=== PATIENT | female | born 1980 | race Caucasian/White ===

== ENCOUNTER 2023-04-19 21:09 | Inpatient (IN) | payer MEDICARE, SELFPAY ==
[2023-04-19] VITALS (17 sets, daily range): BP systolic 92–129; BP diastolic 59–99; BMI 20.6
[2023-04-19] MEDS: NSS 1000 IV ×3 (18:18→22:51)
[2023-04-19 18:39] LABS: % Basophils 0.6 % (0-2); % Immature Granulocytes 0.3 % (0-0.5); % Monocytes 4.1 % (1.7-9.3); Absolute Basophils 0.1 10^3/uL (0-0.2); Absolute Lymphocytes 1.1 10^3/uL (1.2-3.4); Absolute Monocytes 0.4 10^3/uL (0.1-0.6); Absolute Neutrophils 7.9 10^3/uL (1.4-6.5); Hematocrit 30.7 % (37.0-47.0); Hemoglobin 11.4 g/dL (12.0-16.0); Mean Corp Hgb Conc. 37.1 g/dL (33.0-37.0); Mean Corpuscular Hgb 32.3 pg (27.0-31.0); Mean Platelet Volume 9.2 fL (7.4-10.4); Nucleated Red Blood Cells % 0 %; Platelet Count 264 10^3/uL (130-400); Red Blood Cell Count 3.53 10^6/uL (4.20-5.40); Red Cell Dist. Width 13.2 % (11.5-14.5); White Blood Cell Count 9.5 10^3/uL (4.8-10.8)
[2023-04-19 18:41] LABS: HCG, Serum Qualitative Screen Negative
[2023-04-19 18:46] LABS: ALT (SGPT) 17 U/L (0-35); AST (SGOT) 23 U/L (14-36); Acetaminophen < 10 ug/ml (10-30); Albumin 3.9 g/dl (3.5-5.0); Alcohol None Detected; Alkaline Phosphatase 62 U/L (38-126); Blood Urea Nitrogen 16 mg/dl (7-17); Calcium 8.5 mg/dl (8.4-10.2); Carbon Dioxide 19 mmol/L (22-30); Chloride 106 mmol/L (98-107); Estimated Creatinine Clearance 98 ml/min; Glucose 139 mg/dl (70-99); Potassium 3.4 mmol/L (3.5-5.1); Salicylate < 1.0 mg/dl (2.0-20.0); Sodium 136 mmol/L (135-145); Total Bilirubin 0.7 mg/dl (0.2-1.3); Total Protein 6.4 g/dl (6.3-8.2); eGFR > 60.00
--- NOTE | 2023-04-19 19:27 | ED.GENMED ---
History of Present Illness
General
Chief Complaint: Overdose Intentional
Source: patient and ambulance crew
Exam Limitations: clinical condition
Travel History
Have you had any contact with someone who has COVID-19?: Unable to Answer
Do you have any symptoms of coronavirus? Fever > 100 degrees, chills, cough, shortness of breath, sore throat, loss of taste or smell, muscle aches, or headache?: Unable to Answer
History of Present Illness
History of Present Illness:
42-year-old female presents after she overdosed at home. She took about 30, 300 mg Seroquel tablets and an overdose attempt. She also tried to cut her neck. The patient's history is somewhat limited due to her apparent intoxication from her
overdose. She denies taking any other medications.
Past History
Past History
ED Past Medical History: Psychiatric
Social History
Tobacco: Non-smoker
Personal: Single
Employment: Employed
Phy Exam
Physical Exam
Physical Exam:
CONSTITUTIONAL Patient somnolent. Appears intoxicated. Vital signs reviewed.
HEAD atraumatic, normocephalic.
EYES eyelids normal to inspection, Pupils equally round and reactive to light, Extraocular muscles intact, Conjunctiva normal, Sclera normal.
NECK normal range of motion, Trachea midline, no jugular venous distention. Superficial abrasions noted to the neck on the left but comes across midline. It is clearly superficial does not break the fascial plane
RESPIRATORY CHEST No respiratory distress noted, Chest expansion equal, Bilateral breath sounds clear.
CARDIOVASCULAR and tachycardic
ABDOMEN abdomen nontender, Bowel sounds normal. No distention.
BACK normal inspection, no obvious deformities
UPPER EXTREMITY range of motion normal, Motor strength normal, no cyanosis, no edema.
LOWER EXTREMITY range of motion normal, Motor strength normal, no cyanosis, no edema.
NEURO speech somewhat slurred, moves all extremities equally, cranial nerves intact, confused.
SKIN skin warm, dry, and normal in color.
Course
Orders/Labs/Results
Orders:
Orders
04/19/23 18:07
Electrocardiogram (*1) Urgent
Reason for Study: QTc Monitoring
EKG- Treatment ONCE
04/19/23 18:09
Cardiac Monitoring- Treatment ONCE
Urinalysis Reflex To Culture Urgent
Urine Drug Abuse Screen Urgent
04/19/23 18:10
0.9% Sodium Chloride 1000 ml [Nss] 1,000 ml IV BOLUS
Test Result ONCE
04/19/23 18:16
Acetaminophen Urgent
Alcohol Urgent
Complete Blood Count/With Diff Urgent
Comprehensive Metabolic Panel Urgent
HCG, Serum Qualitative Screen Urgent
Salicylate Urgent
04/19/23 19:30
0.9% Sodium Chloride 1000 ml [Nss] 1,000 ml IV BOLUS
Abnormal Lab Results
04/19/23
18:16
RBC 3.53 L 10^6/uL
(4.20-5.40)
Hgb 11.4 L g/dL
(12.0-16.0)
Hct 30.7 L %
(37.0-47.0)
MCH 32.3 H pg
(27.0-31.0)
MCHC 37.1 H g/dL
(33.0-37.0)
Absolute Neuts (auto) 7.9 H 10^3/uL
(1.4-6.5)
Absolute Lymphs (auto) 1.1 L 10^3/uL
(1.2-3.4)
Neutrophils % 83.0 H %
(42.2-75.2)
Lymphocytes % 12.0 L %
(20.5-51.1)
Potassium 3.4 L mmol/L
(3.5-5.1)
Carbon Dioxide 19 L mmol/L
(22-30)
Glucose 139 H mg/dl
(70-99)
Salicylates < 1.0 L mg/dl
(2.0-20.0)
Acetaminophen < 10 L ug/ml
(10-30)
04/19/23 18:16
04/19/23 18:16
Vital Signs
Initial and Last Documented VS:
Initial Vital Signs
Pulse BP Pulse Ox
118 92/60 98
04/19/23 18:00 04/19/23 18:00 04/19/23 18:00
Last Documented Vital Signs
Temp Pulse Resp BP Pulse Ox
98.3 F 121 17 119/63 97
04/19/23 18:49 04/19/23 19:15 04/19/23 19:15 04/19/23 19:15 04/19/23 19:15
MDM/Problems Addressed
MDM/Problems Addressed:
Suicide attempt, self cutting, Seroquel overdose, major depression
*Pulse Oximetry
Patient hypoxic: no
*EKG
Interpreted by ED Provider?: Yes
Interpretation: abnormal
Rate: tachycardiac
Rhythm: sinus
[place]: normal axis
Ischemia: non-specific ST changes
*Senior Data Quality Analyst Interpretation
Rate: tachycardiac
Interpretation: abnormal
Rhythm: sinus
*Critical Care Note
Total Time (30-74mins, 75-104mins- exclusive of procedures): 45 minutes
Data Reviewed
Source: patient and ambulance crew
Prescriptions/Medications Considered But Not Given:
Considered IV magnesium but toxicology from [facility] recommends only if QTc goes above 500
Patient Management
Discussion with other providers: Law Firm Partner (case d/w DR Valdovinos from tox)
Escalation/DeEscalation of care consider admission/obs:
Patient awake but somnolent. Suspect related to Seroquel overdose. No clinical concern for her coming to her neck as it is very superficial. Toxicology recommends close monitoring in the hospital as inpatient as this can take some time to
washout. He also wants monitoring of her QTc. If QTc goes greater than 500 then consider 2 g of IV magnesium. Admit
Update Note
Update Note:
302 was filed by police, upheld by me
ED Attending Note
-
Portions of this chart may have been created with voice recognition software.� Occasional wrong word or��sound alike� substitutions may have occurred due to the inherent limitations of voice recognition software.
Discharge Plan
Departure
Patient Disposition: Admit
Date of Disposition: 04/19/23
Time of Disposition: 19:54
Admit to: IMU
Presentation/result/management discussed w/ accepting MD/DO: Hospitalist
Discharge Problem:
seroquel overdose, Suicide attempt, Deliberate self-cutting
Prescriptions:
No Action
lamotrigine 200 mg tablet
200 mg PO HS
quetiapine 300 mg tablet
300 mg PO HS
olanzapine 15 mg tablet
15 mg PO HS
drospirenone-ethinyl estradiol 3-0.03 mg tablet
1 tab PO DAILY
alprazolam 3 mg tablet extended release 24 hr
3 mg PO HS
Patient Comments:
04/19/2023: last filled 04/03/23, 30 tabs for 30 days from [id number]
alprazolam 1 mg tablet extended release 24 hr
1 mg PO DAILY
Patient Comments:
04/19/2023: last filled 03/31/23, 30 tabs for 30 days from [id number]
Interventions
Interventions:
*Risk Screen - Suicide Last Done: 04/19/23 18:26
--- NOTE | 2023-04-19 19:55 | PHANOTE ---
Med Rec Note:
Pt unable to be interview at time of med rec. Med list compiled from Dr Hernandez, Home med list and EMS report.
--- NOTE | 2023-04-19 20:26 | HPS.HSE ---
Family Physician
-
Family Physician: * NONE
Chief Complaint
-
overdose
History of Present Illness
42-year-old female past medical history of presenting for overdose. She took 30 tablets of 300 mg Seroquel as an overdose attempt. She also tried to cut her neck. No further history can be obtained as patient not making sense.
Medical History
Past Medical History
Past Medical History: Reports Psychiatric
Past Surgical History: Reports None
Social History
Tobacco: Non-smoker
Alcohol: None
Drug: None
Family History
Family History: Not pertinent
Allergies / Home Medications
Allergies reflects when Allergies were last updated in [facility].
Home Medications with original date entered in [facility]
Allergy/Medication List:
Allergies
Allergy/AdvReac Type Severity Reaction Status Date / Time
Penicillins Allergy Hives Verified 04/26/11 16:13
Sulfa (Sulfonamide Allergy Hives Verified 04/26/11 16:13
Antibiotics)
Home Medications
alprazolam 1 mg tablet,extended release 24 hr 1 mg PO DAILY 04/19/23
alprazolam 3 mg tablet,extended release 24 hr 3 mg PO HS 04/19/23
drospirenone 3 mg-ethinyl estradiol 0.03 mg tablet 1 tab PO DAILY 04/19/23
lamotrigine 200 mg tablet 200 mg PO HS 04/19/23
olanzapine 15 mg tablet 15 mg PO HS 04/19/23
quetiapine 300 mg tablet 300 mg PO HS 04/19/23
Review of Systems
-
History Source: Patient
A 12 point ROS was completed and negative except as noted: Yes
Constitutional: Reports No Symptoms
EENT: Reports No Symptoms
Respiratory: Reports No Symptoms
Cardiac: Reports No Symptoms
Abdomen/GI: Reports No Symptoms
: Reports No Symptoms
Musculoskeletal: Reports No Symptoms
Skin: Reports No Symptoms
Neurological: Reports No Symptoms
Endocrine: Reports No Symptoms
Hematologic/Lymphatic: Reports No Symptoms
Psych: Reports No Symptoms
Physical Exam
Vital Signs
Vital Signs
Temp Pulse Resp BP Pulse Ox
98.3 F 112 13 128/65 97
04/19/23 18:49 04/19/23 20:00 04/19/23 20:00 04/19/23 20:00 04/19/23 19:45
Physical Exam
General: Well Developed, Well Nourished and No Apparent Distress
HEENT: NormoCephalic, Moist mucous membranes and Atraumatic
Respiratory: Clear
Cardiac: S1/S2 and Regular Rhythm; No Murmur or Rub
GI: Soft, Non Tender, Non Distended and Normal Bowel Sounds; No Organomegaly
Rectal: Deferred by Provider
Musculoskeletal: No Clubbing, No Cyanosis and No Edema
Skin: No Rash
Neuro: Nonfocal/grossly intact
Laboratory Results
-
04/19/23 18:16
04/19/23 18:16
Laboratory Results
Total Bilirubin 0.7 mg/dl (0.2-1.3) 04/19/23 18:16
AST 23 U/L (14-36) 04/19/23 18:16
ALT 17 U/L (0-35) 04/19/23 18:16
Alkaline Phosphatase 62 U/L (38-126) 04/19/23 18:16
Data Reviewed
-
Lab Data: Labs Reviewed by me
Old Records: Reviewed
Impression/Plan
-
IMPRESSION:
PLAN:
# Seroquel overdose
-Patient awake and alert and AAOx3 but not making sense
-302 signed
-EKG shows sinus tachycardia, QRS of 86, QTc of 483
-Salicylate, Tylenol negative
-Alcohol level negative
-UDS pending
-Telemetry monitoring
-EKG q6 hours
-IV fluids
-One-to-one sitter
-Toxicology recommended repeat EKG in 2 hours and IV magnesium if QTc greater than 500
-Psychiatry consulted
# Neck injury
-No bleeding or wound
Psychiatric history
-Hold all psychiatric medications until mental status improves/evaluated by psychiatry
Hypokalemia
-Replete potassium
Chronic anemia
Full code
DVT prophylaxis heparin
Regular diet
[2023-04-19] MEDS: KCL 270 MEQ IV (21:11)
[2023-04-20] VITALS (41 sets, daily range): BP systolic 97–144; BP diastolic 46–121
[2023-04-20 00:24] LABS: Glucose - Point of Care 125 mg/dl (70-99)
--- NOTE | 2023-04-20 01:37 | W.PN.UPDATE ---
Update Note
Progress Note Update
-Patient had seizure that witness by the nursing staff and described as 12 seconds of tonic clonic seizure-type activity, no warning signs, spontaneous in nature and onset. On assessment, patient is awake, no seizure activities witness during
assessment time. She is confused, with non sense sentences, not following direction which is her baseline since admission time. Non clear if the patient has medical history of seizure or could be related to the overdose meds. Can not obtain medical
history from the patient at this time.
-Will add Ativan 1mg q6hrs PRN for seizure and neurology consult.
[2023-04-20 03:22] LABS: Blood Urea Nitrogen 10 mg/dl (7-17); Calcium 7.6 mg/dl (8.4-10.2); Carbon Dioxide 19 mmol/L (22-30); Chloride 113 mmol/L (98-107); Estimated Creatinine Clearance 114 ml/min; Glucose 103 mg/dl (70-99); Potassium 3.6 mmol/L (3.5-5.1); Sodium 137 mmol/L (135-145); eGFR > 60.00
[2023-04-20] MEDS: ATIVAN 1 MG IV ×3 (03:28→17:16)
[2023-04-20 04:22] LABS: % Basophils 0.4 % (0-2); % Eosinophils 0.1 % (0-6); % Immature Granulocytes 0.4 % (0-0.5); % Monocytes 4.7 % (1.7-9.3); % Neutrophils 72.4 % (42.2-75.2); Absolute Lymphocytes 2.4 10^3/uL (1.2-3.4); Absolute Monocytes 0.5 10^3/uL (0.1-0.6); Absolute Neutrophils 7.8 10^3/uL (1.4-6.5); Hematocrit 30.2 % (37.0-47.0); Hemoglobin 10.2 g/dL (12.0-16.0); Mean Corp Hgb Conc. 33.8 g/dL (33.0-37.0); Mean Corpuscular Hgb 32.3 pg (27.0-31.0); Mean Corpuscular Volume 95.6 fL (81.0-99.0); Mean Platelet Volume 9.1 fL (7.4-10.4); Nucleated Red Blood Cells % 0 %; Platelet Count 268 10^3/uL (130-400); Red Blood Cell Count 3.16 10^6/uL (4.20-5.40); Red Cell Dist. Width 13.3 % (11.5-14.5); White Blood Cell Count 10.8 10^3/uL (4.8-10.8)
[2023-04-20 04:29] LABS: Amphetamines Negative (Negative); Barbiturates Negative (Negative); Benzodiazepines Positive (Negative); Buprenorphine Negative (Negative); Cocaine Negative (Negative); Marijuana Negative (Negative); Methadone Negative (Negative); Methamphetamines Negative (Negative); Opiates Negative (Negative); Phencyclidine Negative (Negative); Tricyclic Antidepressants Positive (Negative)
[2023-04-20 04:37] LABS: Fentanyl, Urine Negative (Negative)
[2023-04-20 04:57] LABS: Urine Albumin Trace (Neg - Trace); Urine Bilirubin Negative (Negative); Urine Character Clear (Clear); Urine Color Yellow; Urine Glucose Negative (Negative); Urine Ketone 3+ (Negative); Urine Leukocyte Negative (Negative); Urine Nitrite Negative (Negative); Urine Occult Blood Negative (Negative); Urine Specific Gravity 1.025 (<1.030); Urine Urobilinogen Negative (Neg - 1+)
[2023-04-20] MEDS: HEPARIN 5000 UNITS SC ×2 (08:08→20:06)
[2023-04-20] MEDS: NSS 1000 IV (08:10)
--- NOTE | 2023-04-20 08:35 | CON.NEURO4 ---
Addendum entered and electronically signed by Zion Ochoa MD 04/20/23 12:20:
Studies reviewed.
I have personally examined the patient. I reviewed and agree with the CASING SPLITTER's Note.
My addenda:
Awake, not alert, interactive. No acute distress.
Speech dysarthric.
Unable to follow 2-step requests. No tremor.
Extra-ocular movements grossly intact.
Facial movements full and symmetric. Hearing intact to normal conversational volume.
Normal UE movements bilaterally.
Neck: full ROM.
Chest: no dyspnea
Heart: no JVD
Ext: (-) Clubbing, (-) Cyanosis, (-) Edema
IMPRESSIONS/RECOMMENDATIONS:
Abrupt onset of change in mental status
Most likely secondary to medication overdose with quetiapine
There is no evidence currently to match serotonin syndrome at this time
No indication at this time that the patient would benefit from antiseizure medication
Supportive care alone
Provide lorazepam if seizure greater than 10 minutes in duration
No indication at this time for EEG
Consider additional testing including neuroimaging if patient does not have steady improvement in the next 24 hours
Will continue to follow as needed.
Original Note:
Consultation - Neurology 4
-
CONSULTING PHYSICIAN: Zion Ochoa MD
REFERRING PHYSICIAN: Hospitalists/LINDA Lundberg
DICTATED BY: LINDA Maya
DATE/TIME OF REQUEST: 04/20/23
DATE/TIME OF CONSULTATION: 04/20/23
Reason for Consultation: Seizure
History of Present Illness:
This is a 42-year-old female who has presented to the hospital on 04/19/23 s/p overdosing on about 30, 300mg Seroquel tablets and superficially cutting her neck. ER VS: 98.3 F, HR 118, BP 92/60, RR 21, 98% RA. UDS +tricyclics and benzodiazepines,
alcohol level negative. Patient was witnessed by staff to have 12 seconds of generalized seizure activity with whole-body shaking early this morning, prompting Neurology consultation. Currently, patient is awake with eyes open and is moving
spontaneously. She has a generalized body shakiness. Speech is nonsensical/garbled and she is unable to contribute to this history. Unknown if patient has any history of seizures.
Past Medical History: Bipolar affective disorder, asthma, recurrent UTI
Surgical History: None.
Family History: Reviewed and noncontributory.
Social History: None smoker, no alcohol or illicit drug use.
Allergies: Penicillins, sulfa.
Home Medications: See below.
Review of Symptoms:
Per the HPI. I am unable to obtain a complete review of systems�because of patient's inability to provide history.
Physical Exam:
The patient is afebrile, abdomen is nondistended, breathing is unlabored, skin is warm and dry, no edema. Lacerations on left anterior neck.
Neurologic Examination:
The patient is awake with eyes open, tracks around the room. Speech is nonsensical/garbled. She is not following any commands. On cranial nerve assessment, pupils are 4 mm bilateral, round and sluggish to light and accommodation. BARRON visual mondragon
or EOMs. No gaze deviation and eyes track around the room. There is no facial asymmetry. BARRON hearing. Cannot assess entire tongue but there does not appear to be a tongue laceration. Moving all extremities spontaneously, uppers antigravity, lowers
2/5. Body movements are generally shaky. Deep tendon reflexes are 1+ bilateral upper and lower extremities and Babinski is absent bilaterally. No clonus. BARRON sensation and coordination.
Lab Results: See below.
Neuro Imaging: None.
Differentials for the patient's presentation include:
1. Generalized seizure in the setting of Seroquel overdose, without status epilepticus, well-controlled.
Patient has the following risk factors for their symptoms: Seroquel overdose, benzodiazepine usage.
Recommendations:
-Do not see a role for further neurological imaging at this time. If there are s/s of more seizure activity, will obtain an EEG at that point.
-Lorazepam 1mg PRN seizure activity.
-Seizure precautions.
-Psychiatry following for Seroquel overdose.
Discussed patient care with: Dr. Ochoa, the patient
Vital Signs and Labs
-
Vital Signs and Labs:
Vital Signs
Temp Pulse Resp BP Pulse Ox
98.9 F 104 17 130/74 97
04/20/23 07:00 04/20/23 06:30 04/20/23 06:30 04/20/23 06:30 04/20/23 06:00
Lab Results
04/20/23 06:00
04/20/23 06:00
Sodium Cancelled 04/20/23 06:00
Potassium Cancelled 04/20/23 06:00
BUN Cancelled 04/20/23 06:00
Glucose Cancelled 04/20/23 06:00
Calcium Cancelled 04/20/23 06:00
Ur Buprenorphine Negative (Negative) 04/20/23 03:58
Medications
-
Active Medications
Generic Name Dose Route Start Last Admin
Trade Name Freq PRN Reason Stop Dose Admin
Heparin Sodium 5,000 units 04/20/23 08:00 04/20/23 08:08
Heparin 5,000 Units/Ml 1 Ml Vial SC 05/18/23 07:59 5,000 units
Q12 JENNIFER Administration
Sodium Chloride 1,000 mls @ 100 mls/hr 04/19/23 22:38 04/20/23 08:10
Nss IV 1,000 mls
.Q10H JENNIFER Administration
Lorazepam 1 mg 04/20/23 01:25 04/20/23 03:28
Lorazepam 2 Mg/Ml Vial IV 05/18/23 01:24 1 mg
Q6HPRN PRN Administration
Seizure
Sodium Chloride 0 flush 04/19/23 23:00
Sodium Chloride 0.9% (Flush) Syringe IV 05/17/23 22:59
PER PROTOCOL JENNIFER
Home Medications
Medication Instructions Recorded
alprazolam 1 mg tablet,extended 1 mg PO DAILY 04/19/23
release 24 hr
alprazolam 3 mg tablet,extended 3 mg PO HS 04/19/23
release 24 hr
drospirenone 3 mg-ethinyl 1 tab PO DAILY 04/19/23
estradiol 0.03 mg tablet
lamotrigine 200 mg tablet 200 mg PO HS 04/19/23
olanzapine 15 mg tablet 15 mg PO HS 04/19/23
quetiapine 300 mg tablet 300 mg PO HS 04/19/23
--- NOTE | 2023-04-20 09:25 | W.PN.HOSP.TC ---
Today's Communication/Plan
-
.
Assessment / Plan
Assessment / Plan
Physical Exam
General: lethargic, No Apparent Distress
HEENT: Normocephalic, Moist mucous membranes and Atraumatic, bruise on anterior neck
Respiratory: Clear
Cardiac: S1/S2 , tachycardia
GI: Soft, Non Tender, Non Distended
Rectal: no rectal bleeding
Musculoskeletal: No Clubbing, No Cyanosis and No Edema
Skin: No Rash
Neuro: awake, did not follow commands. + confusion.
Psych: + agitation ,
# Seroquel overdose
Monitor for anticholinergic toxicity
Currently, patient looks confused, agitated mildly, she had seizure last night.
Heart rate around 100. No hypotension. EKG no prolonged QT or widening QRS
Continue clinical research monitor
Continue supportive care
Change IV fluid to dextrose with normal saline at 150 cc an hour
Check CPK to rule out rhabdomyolysis
Change benzodiazepine [id number] to avoid further seizure
Lorazepam 1mg PRN seizure activity. 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
-302 signed
-Salicylate, Tylenol negative
-Alcohol level negative
- Negative test-
-UDS positive for tricyclic and benzodiazepines
-Toxicology recommended repeat EKG in 2 hours and IV magnesium if QTc greater than 500
Appreciate neurology and psychiatry input
# Neck injury
-No bleeding or wound
#Psychiatric history
-Hold all psychiatric medications until mental status improves/evaluated by psychiatry
#Hypokalemia
-Replete potassium
#Chronic anemia
Full code
DVT prophylaxis heparin
Regular diet
Total time spent to see the patient on the floor, examine the patient, review data and lab results, discuss treatment plan with patient, neurologist and nursing staff around 55 minutes
Anticipated Discharge: > 48 hours
Subjective/Interval History
-
Date of Service: April 20, 2023
Objective Data
-
Labs:
Laboratory Results
04/20/23 04/20/23 04/20/23
02:45 03:58 06:00
WBC Cancelled 10.8 Cancelled
Hgb Cancelled 10.2 L Cancelled
Hct Cancelled 30.2 L Cancelled
Plt Count Cancelled 268 Cancelled
Sodium 137 Cancelled
Potassium 3.6 Cancelled
Chloride 113 H Cancelled
Carbon Dioxide 19 L Cancelled
BUN 10 Cancelled
Creatinine 0.5 L Cancelled
Glucose 103 H Cancelled
Calcium 7.6 L Cancelled
Total Bilirubin Cancelled
AST Cancelled
ALT Cancelled
Alkaline Phosphatase Cancelled
Vital Signs:
Vital Signs
Temp Pulse Resp BP Pulse Ox
98.9 F 104 17 130/74 97
04/20/23 07:00 04/20/23 06:30 04/20/23 06:30 04/20/23 06:30 04/20/23 06:00
--- NOTE | 2023-04-20 10:17 | W.PN.UPDATE ---
Update Note
Progress Note Update
Seen the patient but unable to get any information as she is disoriented and cionfused likely as she took 30 of 300 mg of Seroquel.
Called her contact but unable to get hold of the mother whose number is listed.
Given the seriousness of her suicide attempt we will recommend inpatient psychiatric hospitalization .
Will follow.
[2023-04-20] MEDS: D5/0.9% SODIUM CHLORIDE 1000 IV ×2 (11:02→17:15)
[2023-04-20] MEDS: NSS (PRESERVATIVE FREE) 10 ML IV (11:03)
[2023-04-20] MEDS: PROTONIX IV 40 MG IV (11:03)
[2023-04-20] MEDS: NSS (PRESERVATIVE FREE) 0.5 ML IV ×2 (11:04→17:15)
--- NOTE | 2023-04-20 11:06 | CM ---
Addendum entered by Roxie Rizvi 04/20/23 11:22:
CM called to patient cell phone which is still at home. Patient mother answered at patient cell phone; [phone]/ patient mother number is [phone]. CM tt to physician.
Original Note:
Patient physician reached out to CM patient phone number for mother as listed on the chart is not accurate. Person answering the phone indicated that she had no contact with patient or knowledge of her. CM reviewed medical record for all admissions
no other documentation of contacts listed. CM will continue to look into options.
[2023-04-20 11:39] LABS: Creatine Phosphokinase 464 U/L (30-135)
--- NOTE | 2023-04-20 15:45 | CM ---
Patient has 303 hearing tomorrow at 10:30am, email sent to [employer] and court notified. Psychiatrist has been notified as well as the petitioner Officer Andrew Fournier; his phone number is [phone]. CM will continue to follow for discharge
planning needs.
Plan;psych placement
[2023-04-21] VITALS (11 sets, daily range): BP systolic 93–139; BP diastolic 56–110; PULSE 108; O2SAT 98
[2023-04-21] MEDS: NSS (PRESERVATIVE FREE) 0.5 ML IV ×2 (00:01→06:10)
[2023-04-21] MEDS: D5/0.9% SODIUM CHLORIDE 1000 IV ×2 (00:07→06:09)
[2023-04-21] MEDS: ATIVAN 1 MG IV ×2 (06:10)
[2023-04-21] MEDS: PROTONIX IV 40 MG IV (09:28)
[2023-04-21] MEDS: HEPARIN 5000 UNITS SC ×2 (09:28→22:30)
[2023-04-21] MEDS: NSS (PRESERVATIVE FREE) 10 ML IV (09:29)
[2023-04-21 09:56] LABS: Hematocrit 31.2 % (37.0-47.0); Hemoglobin 10.8 g/dL (12.0-16.0); Mean Corp Hgb Conc. 34.6 g/dL (33.0-37.0); Mean Corpuscular Hgb 32.2 pg (27.0-31.0); Mean Corpuscular Volume 93.1 fL (81.0-99.0); Mean Platelet Volume 8.7 fL (7.4-10.4); Platelet Count 257 10^3/uL (130-400); Red Blood Cell Count 3.35 10^6/uL (4.20-5.40); Red Cell Dist. Width 13.4 % (11.5-14.5); White Blood Cell Count 7.4 10^3/uL (4.8-10.8)
[2023-04-21 10:07] LABS: ALT (SGPT) 18 U/L (0-35); AST (SGOT) 28 U/L (14-36); Albumin 3.4 g/dl (3.5-5.0); Alkaline Phosphatase 52 U/L (38-126); Blood Urea Nitrogen < 2 mg/dl (7-17); Calcium 8.2 mg/dl (8.4-10.2); Carbon Dioxide 24 mmol/L (22-30); Chloride 109 mmol/L (98-107); Estimated Creatinine Clearance 114 ml/min; Glucose 99 mg/dl (70-99); Magnesium 1.9 mg/dl (1.6-2.3); Potassium 3.4 mmol/L (3.5-5.1); Sodium 137 mmol/L (135-145); Total Bilirubin 0.5 mg/dl (0.2-1.3); Total Protein 5.8 g/dl (6.3-8.2); eGFR > 60.00
--- NOTE | 2023-04-21 10:25 | W.PN.HOSP.TC ---
Today's Communication/Plan
-
.
Assessment / Plan
Assessment / Plan
Physical Exam
General: Comfortable, No Apparent Distress
HEENT: Normocephalic, Moist mucous membranes and Atraumatic, bruise on anterior neck
Respiratory: Clear
Cardiac: S1/S2 ,regular
GI: Soft, Non Tender, Non Distended
Rectal: no rectal bleeding
Musculoskeletal: No Clubbing, No Cyanosis and No Edema
Skin: No Rash
Neuro: awake, alert, oriented X3, not confused, followed commands
Psych: calm
# Seroquel overdose
she is doing better
No agitation
No delirium
Awake and followed commands
No hypotension. EKG no prolonged QT or widening QRcan resume oral diet, stop IVF
Stop Ativan ATC, change to PRN
-Salicylate, Tylenol negative
-Alcohol level negative
- Negative test-
-UDS positive for tricyclic and benzodiazepines
Appreciate neurology and psychiatry input
# Seizure due to overdose
no recurrent seizure
# Neck injury
-No bleeding or wound
#Psychiatric history of depression
-Can resume her oral psych meds gradually
#Hypokalemia
-Replete potassium
#Chronic anemia
Full code
DVT prophylaxis heparin
Regular diet
Total time spent to see the patient on the floor, examine the patient, review data and lab results, discuss treatment plan with patient, her mother, and nursing staff around 55 minutes
Anticipated Discharge: 24 - 48 hours
Subjective/Interval History
-
Date of Service: April 21, 2023
She is doing better
more awake
Objective Data
-
Labs:
Laboratory Results
04/21/23
09:40
WBC 7.4
Hgb 10.8 L
Hct 31.2 L
Plt Count 257
Sodium 137
Potassium 3.4 L
Chloride 109 H
Carbon Dioxide 24
BUN < 2 L
Creatinine 0.6
Glucose 99
Calcium 8.2 L
Total Bilirubin 0.5
AST 28
ALT 18
Alkaline Phosphatase 52
Vital Signs:
Vital Signs
Temp Pulse Resp BP Pulse Ox
98.9 F 86 13 128/84 96
04/20/23 07:00 04/21/23 05:00 04/21/23 05:00 04/21/23 04:00 04/21/23 01:25
I&O
04/20/23 04/21/23 04/22/23
06:59 06:59 06:59
Intake Total 1800 / 1800
Output Total 750 / 750
Balance 1050 / 1050
--- NOTE | 2023-04-21 11:34 | W.PN.NEURO.1 ---
Today's Communication / Plan
-
No indication at this time that the patient would benefit from antiseizure medication
Supportive care alone
Provide lorazepam if seizure greater than 10 minutes in duration
No indication at this time for EEG
Neuro Assessment/Plan
Assessment
IMPRESSIONS
Abrupt onset of change in mental status
Most likely secondary to medication overdose with quetiapine
There is no evidence currently to match serotonin syndrome at this time
Plan
No indication at this time that the patient would benefit from antiseizure medication
Supportive care alone
Provide lorazepam if seizure greater than 10 minutes in duration
No indication at this time for EEG
We will follow as needed. Please contact us with additional questions or issues.
Subjective/Objective
Subjective Data
Date of Service: April 21, 2023
Patient with poor recall of recent events
Objective Data
Vital Signs
Temp Pulse Resp BP Pulse Ox
37.2 C 86 13 128/84 96
04/20/23 07:00 04/21/23 05:00 04/21/23 05:00 04/21/23 04:00 04/21/23 01:25
Lab Results
04/21/23 09:40
04/21/23 09:40
Sodium 137 mmol/L (135-145) 04/21/23 09:40
Potassium 3.4 mmol/L (3.5-5.1) L 04/21/23 09:40
BUN < 2 mg/dl (7-17) L 04/21/23 09:40
Glucose 99 mg/dl (70-99) 04/21/23 09:40
Calcium 8.2 mg/dl (8.4-10.2) L 04/21/23 09:40
Ur Buprenorphine Negative (Negative) 04/20/23 03:58
Patient Allergies
Penicillins Allergy (Verified 04/26/11 16:13)
Hives
Sulfa (Sulfonamide Antibiotics) Allergy (Verified 04/26/11 16:13)
Hives
Review of Systems
-
History Source: Patient
All other systems: Reviewed and negative
Neuro: Negative Dizzy, Headache or Weakness
Physical Exam
-
General: No Apparent Distress and Appears Stated Age
Eyes: Round OU, Emet Conjunctivae and No Ptosis
HEENT: Anicteric and Moist Mucous Membranes
Neck: Full Range of Motion
Respiratory: No Dyspnea
Cardiac: No JVD
GI: Non-distended
Skin: Unremarkable
Extremities: No Clubbing, No Cyanosis and No Edema
Psych: Intact Judgement/Insight
Extended Neurological Exam
Mood & Affect: Mood Unremarkable
Attention Span & Concentration: Awake, Alert and Interactive
Memory: Unable to Recall Personal History
Tremor: Hand Tremor Absent and Head Tremor Absent
Involuntary Movement: None
Speech: Quality Unremarkable and Mildly Reduced Output
Cranial Nerve II: Left Eye: Pupillary Size Unremarkable and Visual Horner Grossly Intact
Cranial Nerve II: Right Eye: Pupillary Size Unremarkable and Visual Horner Grossly Intact
Cranial Nerves III, IV, : Extraocular Movement: Grossly Intact
Cranial Nerve VII: Facial Symmetry: Normal Facial Symmetry
Cranial Nerve VIII: Hearing: Unremarkable Hearing to Normal Conversational Volume
Muscle Bulk & Tone: Bulk Unremarkable and Tone Unremarkable
Coordination: Reaches for Objects without Difficulty
Modified Jeremie Score (MRS)
-
MRS Score:
Data Reviewed
-
Labs: Report Reviewed
Reviewed with: Physician, Nurse, Nurse Practioner and Patient
Old Records: Summarized
Past History
Past History
ED Past Medical History: Psychiatric (Suicide attempt)
Social History
Tobacco: Non-smoker
Personal: Single
Employment: Employed
Family History
Family History: Other (reviewed and non-contributory)
Medications
-
Medications:
Generic Name Dose Route Start Last Admin
Trade Name Freq PRN Reason Stop Dose Admin
Heparin Sodium 5,000 units 04/20/23 08:00 04/21/23 09:28
Heparin 5,000 Units/Ml 1 Ml Vial SC 05/18/23 07:59 5,000 units
Q12 JENNIFER Administration
Dextrose/Sodium Chloride 1,000 mls @ 150 mls/hr 04/20/23 10:00 04/21/23 06:09
D5/0.9% Sodium Chloride IV 1,000 mls
.Q6H40M JENNIFER Administration
Lamotrigine 200 mg 04/21/23 22:00
Lamotrigine 100 Mg Tablet PO 05/19/23 21:59
HS JENNIFER
Lorazepam 1 mg 04/20/23 01:25 04/20/23 03:28
Lorazepam 2 Mg/Ml Vial IV 05/18/23 01:24 1 mg
Q6HPRN PRN Administration
Seizure
Olanzapine 15 mg 04/22/23 22:00
Olanzapine 10 Mg Tablet PO 05/20/23 21:59
HS JENNIFER
Pantoprazole Sodium 40 mg 04/20/23 10:00 04/21/23 09:28
Pantoprazole Sodium 40 Mg/10 Ml Vial IV 05/18/23 09:59 40 mg
DAILY JENNIFER Administration
Sodium Chloride 0 flush 04/19/23 23:00
Sodium Chloride 0.9% (Flush) Syringe IV 05/17/23 22:59
PER PROTOCOL JENNIFER
Sodium Chloride 10 ml 04/20/23 11:00 04/21/23 09:29
Sodium Chloride 0.9% (Preservative Free) 10 Ml Vial IV 05/18/23 10:59 10 ml
DAILY JENNIFER Administration
--- NOTE | 2023-04-21 12:20 | CM ---
Patient had 303 hearing today. Patient stated to hearing document review attorney that she would agree to sign 201 paperwork for voluntary admission for psych. Psychiatrist to complete paperwork and CM will look for admission to inpatient psych.
Plan; voluntary psych placement when medically appropriate.
--- NOTE | 2023-04-21 12:58 | CM ---
CM reviewed medical records. Patient has been referred to [facility] via Care port. Patient has been referred to [facility] via paper fax. CM will continue to follow for placement.
[2023-04-21] MEDS: D5/0.9% SODIUM CHLORIDE IV (13:49)
--- NOTE | 2023-04-21 17:15 | CM ---
CM had patient sign 201. Patient expressed concern that her insurance wont pay for inpatient treatment. Cm offered reassurance that CM will find an inpatient facility that will accept her insurance.
[2023-04-21] MEDS: LAMICTAL 200 MG PO (22:30)
[2023-04-22 03:33] VITALS: BP 121/77
[2023-04-22 07:04] VITALS: BP 119/72
[2023-04-22] MEDS: HEPARIN 5000 UNITS SC ×2 (07:45→20:53)
[2023-04-22] MEDS: PROTONIX IV 40 MG IV (07:46)
[2023-04-22] MEDS: NSS (PRESERVATIVE FREE) 10 ML IV (07:46)
--- NOTE | 2023-04-22 08:25 | W.PN.HOSP.TC ---
Today's Communication/Plan
-
dc planning
Assessment / Plan
Assessment / Plan
Physical Exam
General: Comfortable, No Apparent Distress
HEENT: Normocephalic, Moist mucous membranes and Atraumatic, bruise on anterior neck
Respiratory: Clear
Cardiac: S1/S2 ,regular
GI: Soft, Non Tender, Non Distended
Rectal: no rectal bleeding
Musculoskeletal: No Clubbing, No Cyanosis and No Edema
Skin: No Rash
Neuro: awake, alert, oriented X3, not confused, followed commands
Psych: calm, looks depressed
# Seroquel overdose
she is doing better
No agitation
No delirium
Awake and followed commands
No hypotension. EKG no prolonged QT or widening QRS, resume oral diet, stopped IVF
Stopped Ativan ATC, change to PRN
-Salicylate, Tylenol negative
-Alcohol level negative
- Negative test-
-UDS positive for tricyclic and benzodiazepines
Appreciate neurology and psychiatry input
# Seizure due to overdose
no recurrent seizure
# Neck injury
-No bleeding or wound
#Psychiatric history of depression
-Will resume her oral psych meds tonight except Seroquel.
#Hypokalemia
-Replaced potassium
#Chronic anemia
Full code
DVT prophylaxis heparin
Regular diet
Total time spent to see the patient on the floor, examine the patient, review data and lab results, discuss treatment plan with patient, her mother, and nursing staff around 55 minutes
Anticipated Discharge: Within 24 hours
Subjective/Interval History
-
Date of Service: April 22, 2023
No pain in chest or abdomen
Objective Data
-
Vital Signs:
Vital Signs
Temp Pulse Resp BP Pulse Ox
99.9 F 96 16 119/72 98
04/22/23 07:04 04/22/23 07:04 04/22/23 07:04 04/22/23 07:04 04/22/23 07:04
I&O
04/21/23 04/22/23 04/23/23
06:59 06:59 06:59
Intake Total 1800 / 1800
Output Total 750 / 750
Balance 1050 / 1050
[2023-04-22] MEDS: KCL PO (10:53)
[2023-04-22 11:00] VITALS: BP 118/72
[2023-04-22 13:57] VITALS: BP 133/69; PULSE 115; O2SAT 97
[2023-04-22 15:08] VITALS: BP 117/72
--- NOTE | 2023-04-22 15:59 | W.PN.UPDATE ---
Update Note
Progress Note Update
Pt seen sitting up in bed, alert and oriented. Pt noted to have signed a 201/voluntary consent for inpatient psych treatment. Pt reports she was admitted to [facility] and [facility] in the past. Pt on Xanax 1 mg prn; was prescribe Xaxan XR
3 mg HS as outpatient. No signs or complaints of benzo withdrawal.
Imp: Depression, R/o Bipolar d/o, depressed. OD on Seroquel
Rec: continue current medications. Inpatient psychiatric facility- pt signed 201 per case mgt
will follow
[2023-04-22 19:01] VITALS: BP 141/87
[2023-04-22] MEDS: LAMICTAL 200 MG PO (20:52)
[2023-04-22] MEDS: ZYPREXA 15 MG PO (20:53)
[2023-04-23 03:13] VITALS: BP 113/66
[2023-04-23 07:09] VITALS: BP 108/71
[2023-04-23 08:02] LABS: Blood Urea Nitrogen 7 mg/dl (7-17); Calcium 8.8 mg/dl (8.4-10.2); Carbon Dioxide 27 mmol/L (22-30); Chloride 102 mmol/L (98-107); Estimated Creatinine Clearance 114 ml/min; Glucose 102 mg/dl (70-99); Magnesium 1.9 mg/dl (1.6-2.3); Potassium 3.4 mmol/L (3.5-5.1); Sodium 137 mmol/L (135-145); eGFR > 60.00
[2023-04-23 08:32] LABS: Hematocrit 33.5 % (37.0-47.0); Hemoglobin 11.5 g/dL (12.0-16.0); Mean Corp Hgb Conc. 34.3 g/dL (33.0-37.0); Mean Corpuscular Hgb 32.1 pg (27.0-31.0); Mean Corpuscular Volume 93.6 fL (81.0-99.0); Mean Platelet Volume 9.5 fL (7.4-10.4); Platelet Count 290 10^3/uL (130-400); Red Blood Cell Count 3.58 10^6/uL (4.20-5.40); Red Cell Dist. Width 12.5 % (11.5-14.5); White Blood Cell Count 6.7 10^3/uL (4.8-10.8)
[2023-04-23] MEDS: XANAX 1 MG PO ×2 (08:46→20:56)
[2023-04-23] MEDS: HEPARIN 5000 UNITS SC ×2 (08:47→20:18)
[2023-04-23] MEDS: FLUSH (NSS) 2 FLUSH IV (08:48)
[2023-04-23] MEDS: NSS (PRESERVATIVE FREE) 10 ML IV (08:51)
[2023-04-23] MEDS: PROTONIX IV 40 MG IV (08:51)
[2023-04-23] MEDS: KCL 20 MEQ PO (08:51)
--- NOTE | 2023-04-23 09:14 | W.PN.HOSP.TC ---
Today's Communication/Plan
-
dc planning
Assessment / Plan
Assessment / Plan
Physical Exam
General: Comfortable, No Apparent Distress
HEENT: Normocephalic, Moist mucous membranes and Atraumatic, bruise on anterior neck
Respiratory: Clear
Cardiac: S1/S2 ,regular
GI: Soft, Non Tender, Non Distended
Rectal: no rectal bleeding
Musculoskeletal: No Clubbing, No Cyanosis and No Edema
Skin: No Rash
Neuro: awake, alert, oriented X3, not confused, followed commands
Psych: calm, looks depressed
# Seroquel overdose
she is doing better
No agitation
No delirium
Awake and followed commands
No hypotension. EKG no prolonged QT or widening QRS, resumed oral diet, stopped IVF
Will do EKG today to ensure stability
Stopped Ativan ATC, change to PRN
-Salicylate, Tylenol negative
-Alcohol level negative
- Negative test-
-UDS positive for tricyclic and benzodiazepines
Appreciate neurology and psychiatry input
# Seizure due to overdose
no recurrent seizure
# Neck injury
-No bleeding or wound
#Psychiatric history of depression
-Resumed her oral psych meds 04/22 evening except Seroquel.
#Hypokalemia
d/w pt, advise her to take it, she agreed.
-Replaced potassium
#Chronic anemia
Stable HGB at 11
Full code
DVT prophylaxis heparin
Regular diet
Total time spent to see the patient on the floor, examine the patient, review data and lab results, discuss treatment plan with patient, her mother, and nursing staff around 55 minutes
Anticipated Discharge: Today
Subjective/Interval History
-
Date of Service: April 23, 2023
No chest pain
No sob
Objective Data
-
Labs:
Laboratory Results
04/23/23
07:06
WBC 6.7
Hgb 11.5 L
Hct 33.5 L
Plt Count 290
Sodium 137
Potassium 3.4 L
Chloride 102
Carbon Dioxide 27
BUN 7
Creatinine 0.6
Glucose 102 H
Calcium 8.8
Vital Signs:
Vital Signs
Temp Pulse Resp BP Pulse Ox
97.8 F 104 16 108/71 96
04/23/23 07:09 04/23/23 07:09 04/23/23 07:09 04/23/23 07:09 04/23/23 07:09
I&O
04/22/23 04/23/23 04/24/23
06:59 06:59 06:59
Intake Total 1340 / 1340
Balance 1340 / 1340
[2023-04-23 14:43] VITALS: BP 112/82
[2023-04-23] MEDS: ZYPREXA 15 MG PO (22:19)
[2023-04-23] MEDS: LAMICTAL 200 MG PO (22:20)
[2023-04-23 23:06] VITALS: BP 120/79
[2023-04-24 07:00] VITALS: BP 114/79
[2023-04-24] MEDS: KCL 20 MEQ PO (08:04)
[2023-04-24] MEDS: HEPARIN 5000 UNITS SC ×2 (08:05→19:44)
[2023-04-24] MEDS: PROTONIX IV 40 MG IV (08:05)
[2023-04-24] MEDS: NSS (PRESERVATIVE FREE) 10 ML IV (08:05)
[2023-04-24 08:35] LABS: Blood Urea Nitrogen 5 mg/dl (7-17); Calcium 8.8 mg/dl (8.4-10.2); Carbon Dioxide 28 mmol/L (22-30); Chloride 104 mmol/L (98-107); Estimated Creatinine Clearance 114 ml/min; Glucose 96 mg/dl (70-99); Potassium 3.7 mmol/L (3.5-5.1); Sodium 137 mmol/L (135-145); eGFR > 60.00
--- NOTE | 2023-04-24 08:38 | W.PN.HOSP.TC ---
Today's Communication/Plan
-
Continue current management. Discharge planning in progress
Assessment / Plan
Assessment / Plan
Physical Exam
General: Comfortable, No Apparent Distress
HEENT: Normocephalic, Moist mucous membranes and Atraumatic, bruise on anterior neck
Respiratory: Clear
Cardiac: S1/S2 ,regular
GI: Soft, Non Tender, Non Distended
Rectal: no rectal bleeding
Musculoskeletal: No Clubbing, No Cyanosis and No Edema
Skin: No Rash
Neuro: awake, alert, oriented X3, not confused, followed commands
Psych: calm, looks depressed
A/P:
# Seroquel overdose
she is doing better
No agitation
No delirium
Awake and followed commands
No hypotension. EKG no prolonged QT or widening QRS, resumed oral diet, stopped IVF
Stopped Ativan ATC, change to PRN
-Salicylate, Tylenol negative
-Alcohol level negative
- Negative test-
-UDS positive for tricyclic and benzodiazepines
Appreciate neurology and psychiatry input
# Seizure due to overdose
no recurrent seizure
# Neck injury
-No bleeding or wound
#Psychiatric history of depression
-Resumed her oral psych meds 04/22 evening except Seroquel.
#Hypokalemia
d/w pt, advise her to take it, she agreed.
-Replaced potassium
#Chronic anemia
Stable HGB at 11
Full code
DVT prophylaxis heparin
Regular diet
Anticipated Discharge: 24 - 48 hours
Subjective/Interval History
-
Date of Service: April 24, 2023
Denies any chest pain or shortness of breath. Speaks in low volume today.
Objective Data
-
Labs:
Laboratory Results
04/24/23
07:31
Sodium 137
Potassium 3.7
Chloride 104
Carbon Dioxide 28
BUN 5 L
Creatinine 0.6
Glucose 96
Calcium 8.8
Vital Signs:
Vital Signs
Temp Pulse Resp BP Pulse Ox
98.9 F 102 16 114/79 94
04/24/23 07:00 04/24/23 07:00 04/24/23 07:00 04/24/23 07:00 04/24/23 07:00
I&O
04/23/23 04/24/23 04/25/23
06:59 06:59 06:59
Intake Total 1340 / 1340 1260 / 1260
Balance 1340 / 1340 1260 / 1260
[2023-04-24] MEDS: XANAX 1 MG PO ×2 (08:54→22:53)
--- NOTE | 2023-04-24 12:34 | CM ---
Addendum entered by Myesha Villarreal 04/24/23 14:54:
TCB from [place], trying to verify insurance.
Original Note:
Spoke with patient.
Remains agreeable to inpatient psych (201)
TC to [place], await tcb.
Clinicals faxed to [facility] at [phone] and [facility] [phone].
Plan: inpatient psychiatry, needs [facility] insurance auth.
--- NOTE | 2023-04-24 14:16 | CS.PSYCHR ---
Consult Summary - Psychiatry
-
Pt seen, chart reviewed. Pt is 42 yo female with history of Bipolar Disorder, admitted 04/19/23 after overdose on approx 30 tabs of prescribed Seroquel 300 mg. Pt noted to be lethargic on arrival, but did state that she attempted suicide. Pt also
tried to cut the side of her neck, with superficial injury visible. Reviewed history with pt, who is now awake, alert, with clear sensorium. She reports she was stable for years on outpatient medication combination, then had manic episode on year
ago, followed by depression which has been persistent. Pt denies specific stressor or life event. Pt states she continues to feel hopeless, feels that nothing will help her depression.
Psych Hx: diagnosed with Bipolar d/o 2004- had inpatient admission for manic episode x 2 months, followed by depression. Pt reports she was stable for years on Lamictal, Zyprexa, Seroquel. She reports she was prescribed Effexor XR and Adderall
for periods of time. Inpatient [facility] May 2022, received ECT x 10, states it was not effective, caused some short-term memory problems. Pt states she was on [place] in summer and developed toxicity. Recent outpatient tx with
psychiatrist Dr Nuno Mccartney
Psych meds- Lamcital 200 mg HS, Zyprexa 15 mg HS, Seroquel 300 mg HS, Xanax XR 3 mg HS
SH: vapes nicotine; denies other substance use
MSE: alert, oriented, calm, cooperative, making good eye contact. Affect somewhat flat/detached. Mood depressed, states feeling hopeless. No overt rachana or psychosis. Insight fair
Imp: Bipolar d/o, depressed. OD on Seroquel with reported suicidal intent
Rec: Referral to inpatient psychiatric facility- pt signed 201 consent
Continue current medications (Seroquel being held after OD)
Will follow
[2023-04-24 15:00] VITALS: BP 118/82
[2023-04-24 16:25] LABS: % Basophils 0.3 % (0-2); % Eosinophils 0.6 % (0-6); % Immature Granulocytes 0.3 % (0-0.5); % Neutrophils 65.8 % (42.2-75.2); Absolute Lymphocytes 1.6 10^3/uL (1.2-3.4); Absolute Monocytes 0.4 10^3/uL (0.1-0.6); Absolute Neutrophils 4.1 10^3/uL (1.4-6.5); Hematocrit 33.9 % (37.0-47.0); Hemoglobin 11.8 g/dL (12.0-16.0); Mean Corp Hgb Conc. 34.8 g/dL (33.0-37.0); Mean Corpuscular Hgb 31.8 pg (27.0-31.0); Mean Corpuscular Volume 91.4 fL (81.0-99.0); Mean Platelet Volume 8.8 fL (7.4-10.4); Nucleated Red Blood Cells % 0 %; Platelet Count 320 10^3/uL (130-400); Red Blood Cell Count 3.71 10^6/uL (4.20-5.40); Red Cell Dist. Width 12.9 % (11.5-14.5); White Blood Cell Count 6.3 10^3/uL (4.8-10.8)
[2023-04-24] MEDS: TYLENOL 650 MG PO (16:27)
[2023-04-24 16:41] LABS: Blood Urea Nitrogen 6 mg/dl (7-17); Carbon Dioxide 26 mmol/L (22-30); Chloride 104 mmol/L (98-107); Estimated Creatinine Clearance 114 ml/min; Glucose 127 mg/dl (70-99); Potassium 3.8 mmol/L (3.5-5.1); Sodium 136 mmol/L (135-145); eGFR > 60.00
[2023-04-24 17:19] LABS: Urine Albumin Negative (Neg - Trace); Urine Bilirubin Negative (Negative); Urine Character Slightly Cloudy (Clear); Urine Color Yellow; Urine Glucose Negative (Negative); Urine Ketone Negative (Negative); Urine Leukocyte 1+ (Negative); Urine Nitrite Negative (Negative); Urine Occult Blood 2+ (Negative); Urine Specific Gravity 1.015 (<1.030); Urine Urobilinogen Negative (Neg - 1+); Urine pH 6.5 (5.0-9.0)
[2023-04-24 17:27] LABS: Urine Bacteria Many (Negative); Urine Red Blood Cell 0-2 /HPF (0-2)
[2023-04-24 17:51] LABS: Amphetamines Negative (Negative); Barbiturates Negative (Negative); Benzodiazepines Positive (Negative); Buprenorphine Negative (Negative); Cocaine Negative (Negative); Marijuana Negative (Negative); Methadone Negative (Negative); Methamphetamines Negative (Negative); Opiates Negative (Negative); Phencyclidine Negative (Negative); Tricyclic Antidepressants Negative (Negative)
[2023-04-24 18:15] LABS: Fentanyl, Urine Negative (Negative)
[2023-04-24] MEDS: ZYPREXA 15 MG PO (21:23)
[2023-04-24] MEDS: LAMICTAL 200 MG PO (21:24)
[2023-04-24 23:05] VITALS: BP 140/85
[2023-04-25 07:03] VITALS: BP 121/77
[2023-04-25] MEDS: HEPARIN 5000 UNITS SC (08:25)
[2023-04-25] MEDS: PROTONIX IV 40 MG IV (08:25)
[2023-04-25] MEDS: NSS (PRESERVATIVE FREE) 10 ML IV (08:25)
[2023-04-25] MEDS: XANAX 1 MG PO ×2 (08:26→14:27)
[2023-04-25] MEDS: KCL 20 MEQ PO (08:26)
--- NOTE | 2023-04-25 09:01 | W.PN.HOSP.TC ---
Today's Communication/Plan
-
Discharge planning today
Assessment / Plan
Assessment / Plan
Physical Exam
General: Comfortable, No Apparent Distress
HEENT: Normocephalic, Moist mucous membranes and Atraumatic, bruise on anterior neck
Respiratory: Clear
Cardiac: S1/S2 ,regular
GI: Soft, Non Tender, Non Distended
Rectal: no rectal bleeding
Musculoskeletal: No Clubbing, No Cyanosis and No Edema
Skin: No Rash
Neuro: awake, alert, oriented X3, not confused, followed commands
Psych: calm, looks depressed
A/P:
# Seroquel overdose
she is doing better
No agitation
No delirium
Awake and followed commands
No hypotension. EKG no prolonged QT or widening QRS, resumed oral diet, stopped IVF--> repeated EKG on 04/24 QTc is 434 and normal sinus rhythm 96 bpm and no changes from prior.
Stopped Ativan ATC, change to PRN
-Salicylate, Tylenol negative
-Alcohol level negative
- Negative test-
-UDS positive for tricyclic and benzodiazepines
Appreciate neurology and psychiatry input
#Mild abnormal UA
Start oral nitrofurantoin and follow-up urine culture as outpatient.
# Repeat urine toxicology unremarkable except positive for benzodiazepines as expected.
# Seizure due to overdose
no recurrent seizure
# Neck injury
-No bleeding or wound
#Psychiatric history of depression
-Resumed her oral psych meds 04/22 evening except Seroquel.
#Hypokalemia
Electrolytes within normal limits last evening
#Chronic anemia
Stable HGB at 11.8 last evening
Full code
DVT prophylaxis heparin
Regular diet
Anticipated Discharge: Today
Subjective/Interval History
-
Date of Service: April 25, 2023
She was drowsy this morning but alert and answers questions appropriately upon my time on the interview.
Objective Data
-
Vital Signs:
Vital Signs
Temp Pulse Resp BP Pulse Ox
98.1 F 101 16 121/77 96
04/25/23 07:03 04/25/23 07:03 04/25/23 07:03 04/25/23 07:03 04/25/23 07:03
I&O
04/24/23 04/25/23 04/26/23
06:59 06:59 06:59
Intake Total 1260 / 1260 1919
Balance 1260 / 1260 1919
--- NOTE | 2023-04-25 09:25 | CM ---
Faxed updated labs and EKG to [facility] [phone].
Await call back re acceptance.
Will need insurance auth.
[2023-04-25] MEDS: MACRODANTIN 100 MG PO (10:17)
--- NOTE | 2023-04-25 10:52 | W.PN.UPDATE ---
Update Note
Progress Note Update
Patient seen at bedside, chart reviewed, discussed with staff. Ms. Vinson was sleeping upon entrance to the room, 1:1 stated that she has been answering him when spoken too. She easily aroused when I called her name. She tells me she continues to
feel very down but denies any active suicidal thoughts or intent. She does tell me she slept really well last night which was good for her. Denies any side effects, EPS/TD symptoms at this time. She can tell me she currently feels safe and is
agreeable to IP psychiatric care.
Impression/Plan:� Bipolar disorder, current episode depressed; OD on Seroquel with reported suicidal intent - Referral to inpatient psychiatric facility, signed 201 consent, continue with 1:1, continue with current psychotropic medication regimen
which includes Lamictal 200mg daily and Zyprexa 15mg HS. Will consider reinitiating Seroquel at low doses (held after OD).
�� �
� � �
--- NOTE | 2023-04-25 11:18 | CM ---
Addendum entered by Myesha Villarreal 04/25/23 13:02:
Ambulance time 3 pm.
Original Note:
Spoke with Aura at the [facility]
Patient with [employer]-
Member number [id number]
Spoke with Rupal at [facility], patient active since 06/15/22.
transferred to [facility] at [facility] for authorization.
Approved 4 days, start date 04/25/23 with NRD 04/28/23, Facility needs to call [facility] for authorization once the patient arrives.
Aura from [facility] updated.
[facility]
Report # [phone]
--- NOTE | 2023-04-25 11:47 | W.DCSUMMARY ---
Discharge Summary
Discharge Data
Date of Admission: 04/19/23
Date of Discharge: 04/25/23
-
Pending Results: No
Hospital Course
Patient 42 years old with history of bipolar disorder came into the hospital after an overdose of Seroquel and she admitted that she attempted suicide. Psychiatry was consulted. Her Seroquel was held and can be reevaluated to restart at a low dose
as outpatient. She was monitored on medical floor and had no complications. Electrolytes initially mildly abnormal but follow-up electrolytes are within normal limits. Also she had a follow-up EKG that is unremarkable. She did have a urinalysis
that was mildly abnormal and she was started empirically on antibiotic but urine cultures will need to be follow-up as outpatient. Otherwise she is afebrile and WBC normal. Medications as discharge med list. Psychiatry cleared her to go to
inpatient psych facility. She will need close psychiatry follow-up as outpatient.
Discharge Plan
-
Patient Disposition: Psych Facility
Discharge Diagnosis/Procedures: Bipolar disorder. Seroquel overdose. Urinary Tract infection.
Diet: Regular
Blood Work: Please PCP to order CBC, BMP within 1-2 weeks
Referrals:
primary care, provider [Other] (see less than 1 week)
Magno Munguia MD [Active] - in four to six weeks
Prescriptions:
New
nitrofurantoin macrocrystal 50 mg Capsule
100 mg PO BID 5 Days Qty: 20 0RF
alprazolam 0.5 mg Tablet
1 mg PO Q6HPRN PRN (Reason: Anxiety,insomnia) Qty: 6 0RF
Continued
lamotrigine 200 mg tablet
200 mg PO HS
olanzapine 15 mg tablet
15 mg PO HS
drospirenone-ethinyl estradiol 3-0.03 mg tablet
1 tab PO DAILY
Discontinued
quetiapine 300 mg tablet
300 mg PO HS
alprazolam 3 mg tablet extended release 24 hr
3 mg PO HS
Patient Comments:
04/19/2023: last filled 04/03/23, 30 tabs for 30 days from [id number]
alprazolam 1 mg tablet extended release 24 hr
1 mg PO DAILY
Patient Comments:
04/19/2023: last filled 03/31/23, 30 tabs for 30 days from [id number]
Discharge Orders:
Discharge Patient (As Directed); Ordered 04/25/23
Ordered By: Norberto Gomez
Discharge Date and Time
Discharge Date/Time: 04/25/23 15:48
== END 2023-04-25 15:48 | DRG 918 ==
LOC: 4 WEST ACU 21:09
PROVIDERS: Internal Medicine; Nurse Practitioner Family; ADMITTING PHYSICIAN Hospitalist; ATTENDING PHYSICIAN Hospitalist; CONSULT PHYSICIAN Psychiatry & Neurology Neurology; CONSULT PHYSICIAN Psychiatry & Neurology Psychiatry; EMERGENCY PHYSICIAN Emergency Medicine
DX: T43.592A Poisoning by other antipsychotics and neuroleptics, intentional self-harm, initial encounter (principal); F31.30 Bipolar disorder, current episode depressed, mild or moderate severity, unspecified; N39.0 Urinary tract infection, site not specified; X78.8XXA Intentional self-harm by other sharp object, initial encounter; R00.0 Tachycardia, unspecified; Y92.009 Unspecified place in unspecified non-institutional (private) residence as the place of occurrence of the external cause; Y93.89 Activity, other specified; E87.6 Hypokalemia; S10.93XA Contusion of unspecified part of neck, initial encounter; D64.9 Anemia, unspecified; R56.9 Unspecified convulsions; J45.909 Unspecified asthma, uncomplicated; Z87.440 Personal history of urinary (tract) infections; Z88.0 Allergy status to penicillin; Z88.2 Allergy status to sulfonamides
CPT/HCPCS: 51701; 80048; 80053; 80143; 80179; 80306; 80307; 81003; 81015; 82077; 82550; 82962; 83735; 84703; 85025; 85027; 87077; 87086; 87186; 93005; 96361; 96374; 96375; 97161; 97165; 99291

== ENCOUNTER 2023-06-30 14:10 | Emergency (ER) | payer MEDICARE, SELFPAY ==
[2023-06-30] VITALS (10 sets, daily range): BP systolic 120–154; BP diastolic 83–91; BMI 23.4
[2023-06-30 14:39] LABS: Glucose - Point of Care 142 mg/dl (70-99)
--- NOTE | 2023-06-30 15:38 | ED.GENMED ---
History of Present Illness
General
Chief Complaint: Change in Mental Status
Source: patient and other (Boyfriend)
Exam Limitations: altered mental status
Time Seen by Provider: 06/30/23 14:24
Nursing documentation reviewed up to this point in time: agreed with
Travel History
Have you had any contact with someone who has COVID-19?: No
Do you have any symptoms of coronavirus? Fever > 100 degrees, chills, cough, shortness of breath, sore throat, loss of taste or smell, muscle aches, or headache?: No
History of Present Illness
History of Present Illness:
Patient with history of bipolar disorder, presents to ED from home after she was found to be more confused and somnolent by family member this morning. Per boyfriend, who has been with the patient for the past 2 years, he is wondering whether or
not patient may have accidentally taken additional medications. Patient was admitted to the hospital earlier this year when she intentionally overdosed on Seroquel. Upon arrival, patient is somnolent, but is arousable to voice and appropriately
answering simple questions. Patient has no complaints. Per boyfriend, patient has been her baseline health recently. However, as part of her intensive outpatient treatment at [facility], new medication, i.e.caplyta, was recently added.
Past History
Past History
ED Past Medical History: Psychiatric (Suicide attempt)
Social History
Tobacco: Non-smoker
Personal: Single
Employment: Employed
Family History
Family History: Other (reviewed and non-contributory)
Review of Systems
Review of Systems
Allergies reviewed?: Yes
Unable to obtain full review of systems at this time due to: due to acuity
All Other Systems: Not applicable
Phy Exam
Physical Exam
Physical Exam:
Physical Exam
General: mild distress, not acutely ill. afebrile
Head: nc/at. eomi. icteric sclera
Neck: supple. no meningeal signs.
Heart: s1/s2 regular rate and rhythm, no murmur. equal radial pulses.
Lungs: no acute respiratory distress. clear bilaterally
Abdomen: normal bowel sounds. not tender.
Neuro: somnolent but easily arousable to voice. No focal neurological deficits
Skin: no rash
Psychiatric: well kept. interactive and cooperative
Extremities: no edema. no calf tenderness.
Course
Orders/Labs/Results
Orders:
Orders
06/30/23 14:42
Electrocardiogram (*1) Stat
Reason for Study: Other
Other Reason for Exam: overdose
Bedside Glucose- Treatment ONCE
EKG- Treatment ONCE
0.9% Sodium Chloride 500 ml [Nss] 500 ml IV BOLUS
Test Result ONCE
06/30/23 14:46
0.9% Sodium Chloride 500 ml [Nss] 500 ml IV BOLUS
06/30/23 16:20
Acetaminophen Urgent
Alcohol Urgent
Complete Blood Count/No Diff Urgent
Comprehensive Metabolic Panel Urgent
HCG, Serum Qualitative Screen Urgent
Lipase Urgent
Comment: ADD ON
Salicylate Urgent
06/30/23 16:23
Fentanyl, Urine Urgent
Urine Drug Abuse Screen Urgent
Date Specimen was Collected: 06/30/23
Time Specimen was Collected: 16:22
06/30/23 16:59
Speech Screening from Kalina Routine
06/30/23 17:02
Bladder Scan- Treatment ONCE
06/30/23 17:28
Urinalysis Reflex To Culture Urgent
Date Specimen was Collected: 06/30/23
Time Specimen was Collected: 17:25
Urine Microscopic Reflex Cult Urgent
Urine Culture Urgent
DEVANTE Source: U
Specimen Description:
Date Specimen was Collected: 06/30/23
Time Specimen was Collected: 17:25
06/30/23 17:58
Add On- LAB Urgent
Tests Added?: lipase
06/30/23 18:01
LevoFLOXacin 500 MG/100 ML [Levaquin] 500 mg in 100 ml IV NOW
MetroNIDAZOLE 500 MG/100 ML [Flagyl 500 mg] 100 ml IV NOW
06/30/23 18:15
0.9% Sodium Chloride 1000 ml [Nss] 1,000 ml IV BOLUS
06/30/23 18:22
US Abdomen Complete/Upper Urgent
Comment:
Reason For Exam: abnormal LFTs
06/30/23 19:17
Ammonia Urgent
Lactic Acid Q4H
Comment: CANCEL 2nd LACTIC ACID IF 1st LACTIC ACID IS LESS THAN 2
PTT Urgent
Prothrombin Time Urgent
06/30/23 19:27
Acetylcysteine [Acetadote] 9,840 mg 0.45% Sodium Chloride 250 ml [0.45%NaCl] 200 ml IV NOW
06/30/23 19:46
Blood Culture Q30M
DEVANTE Source: Blood/Venous
Specimen Description:
Blood Culture Q30M
DEVANTE Source: Blood/Venous
Specimen Description:
06/30/23 20:45
Ondansetron Injectable [Zofran] 4 mg IV NOW STA
Abnormal Lab Results
06/30/23 06/30/23 06/30/23
14:38 16:20 16:23
WBC 15.4 H 10^3/uL
(4.8-10.8)
MCH 31.4 H pg
(27.0-31.0)
PT
BUN 68 H mg/dl
(7-17)
Creatinine 4.4 H* mg/dL
(0.6-1.0)
Glucose 128 H mg/dl
(70-99)
Lactic Acid
Total Bilirubin 7.9 H mg/dl
(0.2-1.3)
AST 2010 H* U/L
(14-36)
ALT > 7500 H* U/L
(0-35)
Alkaline Phosphatase 171 H U/L
(38-126)
Lipase 526 H U/L
(23-300)
Ur Occult Blood Reflex
Urine RBC
Urine Bacteria (Reflex)
Salicylates < 1.0 L mg/dl
(2.0-20.0)
Acetaminophen < 10 L ug/ml
(10-30)
Ur Tricyclics Screen Positive H
(Negative)
U Benzodiazepines Scrn Positive H
(Negative)
POC Glucose 142 H mg/dl
(70-99)
06/30/23 06/30/23
17:28 19:17
WBC
MCH
PT 26.8 H Sec
(11.4-14.6)
BUN
Creatinine
Glucose
Lactic Acid 2.1 H mmol/L
(0.7-2.0)
Total Bilirubin
AST
ALT
Alkaline Phosphatase
Lipase
Ur Occult Blood Reflex 4+ A
(Negative)
Urine RBC 3-6 A /HPF
(0-2)
Urine Bacteria (Reflex) Many A
(Negative)
Salicylates
Acetaminophen
Ur Tricyclics Screen
U Benzodiazepines Scrn
POC Glucose
06/30/23 16:20
06/30/23 16:20
Vital Signs
Initial and Last Documented VS:
Initial Vital Signs
Temp Pulse Resp BP Pulse Ox
97.8 F 77 18 120/84 98
06/30/23 14:12 06/30/23 14:12 06/30/23 14:12 06/30/23 14:12 06/30/23 14:12
Last Documented Vital Signs
Temp Pulse Resp BP Pulse Ox
97.8 F 84 18 141/91 99
06/30/23 14:12 06/30/23 23:15 06/30/23 23:15 06/30/23 23:00 06/30/23 22:15
MDM/Problems Addressed
MDM/Problems Addressed:
Blood work reviewed, significant for acute renal failure as well as severely abnormal liver function test.
Patient evaluated in ED by Dr. Saavedra, community relations manager - further information obtained. Pt does admit to taking number of tylenol tablets 2 days ago. And according to boyfriend, there are 2 bottles of tylenol in the truck with one bottle half
empty. Recommends transfer to tertiary hospital for potential liver transplant, along with starting NAC tx.
Pt will be accepted for transfer by (ICU attending @ [facility]).
Transfer consent on the chart.
Critical care statement: A total of 40 minutes of critical care time was provided for this patient. This includes management of unstable vital signs, evaluation of the patient at bedside, reviewing the patient's pertinent medical records, discussion
with consultants, review of old EKGs and review of pertinent medical records. This time with separate from time utilized to perform the aforementioned documented procedures
*EKG
Interpreted by ED Provider?: Yes
EKG Intrepretation Date: 06/30/23
Heart Rate: 73
Rate: normal
Rhythm: sinus
[place]: normal axis
Interval: normal interval
*Critical Care Note
Total Time (30-74mins, 75-104mins- exclusive of procedures): 40 min
ED Attending Note
-
Portions of this chart may have been created with voice recognition software.� Occasional wrong word or��sound alike� substitutions may have occurred due to the inherent limitations of voice recognition software.
Discharge Plan
Departure
Patient Disposition: Acute Care Hospital
Date of Disposition: 06/30/23
Time of Disposition: 19:26
Condition: Critical
Discharge Problem:
Abnormal LFTs (liver function tests), Acute renal failure (ARF)
Prescriptions:
No Action
lamotrigine 200 mg tablet
200 mg PO HS
olanzapine 15 mg tablet
15 mg PO HS
drospirenone-ethinyl estradiol 3-0.03 mg tablet
1 tab PO DAILY
fluticasone propion-salmeterol [Advair Diskus] 250-50 mcg/dose Blister With Device
1 inh INHALATION R BID
quetiapine [Seroquel] 300 mg Tablet
300 mg PO HS
alprazolam [Xanax] 1 mg Tablet
1 mg PO HS
Rx Instructions:
patient also filling 0.5mg
venlafaxine [Effexor XR] 150 mg Capsule,Extended Release 24hr
150 mg PO HS
propranolol 10 mg Tablet
10 mg PO TID
trazodone 100 mg Tablet
100 mg PO HSPRN PRN (Reason: sleep)
Caplyta 42 mg Capsule
42 mg PO DAILY
Referrals:
UNKNOWN - PT NOT,INTERVIEWE [Family Provider] -
Hospital Transfer
Other hospital: [facility]
I certify that the patient requires transfer: Yes
Discussed case with accepting physician:
Reason for transfer: higher level of care, medical necessity, availability of service and specialties available
Interventions
Interventions:
*Risk Screen - Suicide Last Done: 06/30/23 17:51
*General Assessment Last Done: 06/30/23 17:51
*Neglect/Abuse Screening Last Done: 06/30/23 17:51
ED- Fall Risk Assessment Last Done: 06/30/23 23:39
*ED COVID-19 Vaccine History Last Done: 06/30/23 17:51
*Nursing Disposition Last Done: 06/30/23 23:39
ED- Cardiac Assessment Last Done: 06/30/23 20:30
ED- Neurological Assessment Last Done: 06/30/23 20:30
ED Swallowing Screen Last Done: 06/30/23 16:58
Discharge Date and Time
Discharge Date/Time: 06/30/23 23:28
Print Language: AZERI
--- NOTE | 2023-06-30 16:00 | PTCARENOTE ---
Pt's boyfriend Aleks states he had to leave, left his phone # [phone].
[2023-06-30 16:38] LABS: Hematocrit 41.4 % (37.0-47.0); Hemoglobin 14.7 g/dL (12.0-16.0); Mean Corp Hgb Conc. 35.5 g/dL (33.0-37.0); Mean Corpuscular Hgb 31.4 pg (27.0-31.0); Mean Corpuscular Volume 88.5 fL (81.0-99.0); Mean Platelet Volume 8.8 fL (7.4-10.4); Platelet Count 253 10^3/uL (130-400); Red Blood Cell Count 4.68 10^6/uL (4.20-5.40); Red Cell Dist. Width 12.7 % (11.5-14.5); White Blood Cell Count 15.4 10^3/uL (4.8-10.8)
[2023-06-30 16:44] LABS: Amphetamines Negative (Negative); Barbiturates Negative (Negative); Benzodiazepines Positive (Negative); Buprenorphine Negative (Negative); Cocaine Negative (Negative); Marijuana Negative (Negative); Methadone Negative (Negative); Methamphetamines Negative (Negative); Opiates Negative (Negative); Phencyclidine Negative (Negative); Tricyclic Antidepressants Positive (Negative)
[2023-06-30 16:47] LABS: HCG, Serum Qualitative Screen Negative
[2023-06-30 16:52] LABS: Albumin 4.1 g/dl (3.5-5.0); Alkaline Phosphatase 171 U/L (38-126); Blood Urea Nitrogen 68 mg/dl (7-17); Calcium 8.9 mg/dl (8.4-10.2); Carbon Dioxide 24 mmol/L (22-30); Chloride 102 mmol/L (98-107); Estimated Creatinine Clearance 16 ml/min; Glucose 128 mg/dl (70-99); Potassium 4.2 mmol/L (3.5-5.1); Sodium 137 mmol/L (135-145); Total Bilirubin 7.9 mg/dl (0.2-1.3); eGFR 12.34
[2023-06-30 17:03] LABS: Fentanyl, Urine Negative (Negative)
--- NOTE | 2023-06-30 17:04 | PHANOTE ---
med rec note- patient unable to answer question at this time, patient boyfriend with her but stepped out and has not returned, patient ecw from 2019 and only has pharmacy records
[2023-06-30 17:08] LABS: Alcohol None Detected
[2023-06-30 17:09] LABS: Acetaminophen < 10 ug/ml (10-30); Salicylate < 1.0 mg/dl (2.0-20.0)
[2023-06-30 17:38] LABS: Urine Albumin Trace (Neg - Trace); Urine Bilirubin Negative (Negative); Urine Character Slightly Cloudy (Clear); Urine Color Brown; Urine Glucose Negative (Negative); Urine Ketone Negative (Negative); Urine Leukocyte Negative (Negative); Urine Nitrite Negative (Negative); Urine Occult Blood 4+ (Negative); Urine Urobilinogen Negative (Neg - 1+)
[2023-06-30 17:55] LABS: ALT (SGPT) > 7500 U/L (0-35); AST (SGOT) 2010 U/L (14-36)
[2023-06-30] MEDS: NSS 500 IV (18:00)
[2023-06-30 18:01] LABS: Urine Bacteria Many (Negative); Urine White Cell 0-2 /HPF (0-5)
[2023-06-30 18:10] LABS: Lipase 526 U/L (23-300)
[2023-06-30] MEDS: NSS 1000 IV (19:30)
[2023-06-30 19:33] LABS: APTT 28.1 Sec (23.4-35.0); Ammonia 30 umol/L (9-30); INR 2.48; Lactic Acid 2.1 mmol/L (0.7-2.0); PT 26.8 Sec (11.4-14.6)
[2023-06-30] MEDS: ACETADOTE 249.199999999999989 MG IV (19:48)
[2023-06-30] MEDS: FLAGYL 500 MG 100 IV (19:53)
[2023-06-30] MEDS: LEVAQUIN 100 IV (20:05)
--- NOTE | 2023-06-30 20:08 | CON.GI ---
Consultation
-
Date/Time Consultation Performed: 06/30/23
Requesting Provider: ER
Performing Provider: Ankush Saavedra MD
Reason for Consultation: acute liver failure
Medical History
Chief Complaint / HPI
Chief Complaint: confusion
History of Present Illness:
The patient is a 42-year-old female with past medical history as noted who presents with confusion. She recently had a hospitalization in March for Seroquel overdose, though after discussion with her boyfriend she been doing very well, completed
a hospitalization in the [facility] and had been in a much better place, overall doing very well. This week she started to have some nausea and vomiting on Monday with an overall sense of not feeling well. Today she was noted to have some
confusion per her boyfriend and brought her to the emergency room where she was found to have bilirubin of 7.9, AST of 2010, ALT greater than 7500 with elevated INR, confusion and renal failure with creatinine of 4.4. On further questioning she
admits to taking 30 Tylenol pills earlier this week, and this was confirmed with her boyfriend with a large bottle of Tylenol and her car that was half empty. Her acetaminophen level here was less than 10. She is conversant and answers questions,
though has some confusion and slowed speech. She denies any alcohol or other illicit drugs. She has no underlying liver disease that is known, and her LFTs in March were normal.
Past Medical History
Past Medical History: Other (Severe depression with history of suicide attempts, status post recent hospitalization)
Past Surgical History: None
Social History
Tobacco: Non-Smoker
Alcohol: None
Family History
Family History: Reviewed & Not Pertinent
Allergies / Home Medications
Allergy/AdvReac Type Severity Reaction Status Date / Time
Penicillins Allergy Hives Verified 06/30/23 14:12
Sulfa (Sulfonamide Allergy Hives Verified 06/30/23 14:12
Antibiotics)
�Medication �Instructions �Recorded
drospirenone 3 mg-ethinyl 1 tab PO DAILY Hormonal Agent 04/19/23
estradiol 0.03 mg tablet
lamotrigine 200 mg tablet 200 mg PO HS Mental Health/Anxiety 04/19/23
olanzapine 15 mg tablet 15 mg PO HS Mental Health/Anxiety 04/19/23
alprazolam 1 mg tablet (Xanax) 1 mg PO DAILYPRN PRN anixety 06/30/23
fluticasone 250 mcg-salmeterol 50 1 inh inhalation R BID 06/30/23
mcg/dose blistr powdr for
inhalation (Advair Diskus)
lumateperone 42 mg capsule 42 mg PO DAILY 06/30/23
(Caplyta)
propranolol 10 mg tablet 10 mg PO TID 06/30/23
quetiapine 300 mg tablet (Seroquel) 300 mg PO HS 06/30/23
trazodone 100 mg tablet 100 mg PO HSPRN PRN sleep 06/30/23
venlafaxine 150 mg 150 mg PO DAILY 06/30/23
capsule,extended release 24 hr
(Effexor XR)
Review of Systems
-
All other systems: A 12 pt ROS was Negative except as stated above in HPI
Vital Signs
Temp Pulse Resp BP Pulse Ox
97.8 F 82 14 144/84 99
06/30/23 14:12 06/30/23 20:00 06/30/23 20:00 06/30/23 20:00 06/30/23 19:30
Physical Exam
Exam
General: NAD, somnolent though arousable, with some trouble with word finding, oriented x 1
HEENT: MMM, icteric, no lymphadenopathy
Heart: Regular, no murmurs
Lungs: CTA bilaterally
Abdomen: normal bowel sounds, soft, no tenderness, no rebound or guarding, no masses, bruits or ascites
Extremeties: no edema
Skin: no rashes
Results
WBC 15.4 10^3/uL (4.8-10.8) H 06/30/23 16:20
Hgb 14.7 g/dL (12.0-16.0) 06/30/23 16:20
Hct 41.4 % (37.0-47.0) 06/30/23 16:20
MCV 88.5 fL (81.0-99.0) 06/30/23 16:20
Plt Count 253 10^3/uL (130-400) 06/30/23 16:20
PT 26.8 Sec (11.4-14.6) H 06/30/23 19:17
INR 2.48 06/30/23 19:17
APTT 28.1 Sec (23.4-35.0) 06/30/23 19:17
Sodium 137 mmol/L (135-145) 06/30/23 16:20
Potassium 4.2 mmol/L (3.5-5.1) 06/30/23 16:20
Chloride 102 mmol/L (98-107) 06/30/23 16:20
Carbon Dioxide 24 mmol/L (22-30) 06/30/23 16:20
BUN 68 mg/dl (7-17) H 06/30/23 16:20
Creatinine 4.4 mg/dL (0.6-1.0) H* 06/30/23 16:20
Calcium 8.9 mg/dl (8.4-10.2) 06/30/23 16:20
Total Bilirubin 7.9 mg/dl (0.2-1.3) H 06/30/23 16:20
AST 2010 U/L (14-36) H* 06/30/23 16:20
ALT > 7500 U/L (0-35) H* 06/30/23 16:20
Alkaline Phosphatase 171 U/L (38-126) H 06/30/23 16:20
Lipase 526 U/L (23-300) H 06/30/23 16:20
Diagnostic Image Results:
Prior GI Procedures:
EGD:
Colonoscopy:
Assessment / Plan
-
1. 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
labs. Other drug induced liver injury is also possible though seems less likely. Other etiologies including fulminant viral hepatitis also seem very unlikely. Her current MELD is 37. We will start NAC now and continue close monitoring of her INR
and other labs. It is unclear whether she would be a transplant candidate or not given her psychiatric history, though this is not an absolute contraindication per hepatology at [facility]. I discussed extensively with the patient's parents, her
boyfriend, hepatology and senior maintenance mechanic at [facility] who accept in transfer urgently for possible transplant evaluation.
-
-
Thank you for consultation and allowing me to participate in the patient's care. Please call the automobile contract clerk GI physician during the after hours with any questions or concerns.
[2023-06-30] MEDS: ZOFRAN 4 MG IV (20:48)
== END 2023-06-30 23:28 | disposition short-term general hospital (02) ==
LOC: EMR 14:10
PROVIDERS: EMERGENCY PHYSICIAN Emergency Medicine
DX: N17.9 Acute kidney failure, unspecified (principal); F31.9 Bipolar disorder, unspecified; Z91.51 Personal history of suicidal behavior
CPT/HCPCS: 99284; 96365; 96368; 96375; 96361; 76700; 80053; 80143; 80179; 80306; 80307; 81003; 81015; 82077; 82140; 82962; 83605; 83690; 84703; 85027; 85610; 85730; 87040; 87086; 93005; J0132